=== PATIENT | female | born 1960 | race Caucasian/White ===

== ENCOUNTER → 2018-09-19 | Outpatient (CLI) | payer OTHER ==
[~2018-09-19] MED LIST: ACET325 PO; ALBU90OI INH; ALPR1 PO; ATEN25 PO; AZIT250 PO; BENADRYL25 MG PO; BENZ100A PO; CEPH500 PO; CLIN300 PO; CLON.5 PO; CRUTCH3 USE; CRUTCH4 XX; CYCL10 PO; Calcium Carbon500 M1 PO; Colace100 MG PO; DIPH50 PO; DOXY100 PO; EPIPEN 2-P0.3 MG/0.3 IM; FAMO20 PO; HYDACE10B PO; HYDACE5 PO; HYDACE5325 PO; IBUP600; IBUP800 PO; METPRE4DP PO; NAPR220 PO; NAPR500 PO; NICOTINE1 EAC1 TD; PENVK500 PO; PRED10 PO; PRED20 PO; PROM25 PO; Prednisone20 MG PO; RXALBOI INH; RXCYCL10 PO; RXHYDACE PO; RXPENVK250 PO; RXTRAM50 PO; SULTRIDS PO; TRAM50 PO; TRAZ50 PO; VARE1 PO; [UNRECOGNIZED DRUG - CODE] PO
== END | disposition home or self-care (01) ==
LOC: EDSTATUS 08:05 → LAB 20:45 → LAB SHORT 20:45
DX: J02.9 Acute pharyngitis, unspecified (principal)
CPT/HCPCS: 87081

== ENCOUNTER 2020-04-07 07:32 | Day surgery (SDC) | payer OTHER ==
[~2020-04-07] VITALS: Ht 167.6 cm; Wt 105.4 kg
== END 2020-04-07 09:52 | disposition home or self-care (01) ==
LOC: ORSCSDS 07:32
PROVIDERS: Internal Medicine Gastroenterology
PROC: 0DBM8ZX Excision of Descending Colon, Via Natural or Artificial Opening Endoscopic, Diagnostic (ICD-10-PCS; principal; 2020-04-07 09:00)
DX: Z12.11 Encounter for screening for malignant neoplasm of colon (principal); Z86.010 Personal history of colon polyps; Z80.0 Family history of malignant neoplasm of digestive organs; D12.4 Benign neoplasm of descending colon; K57.30 Diverticulosis of large intestine without perforation or abscess without bleeding; K64.1 Second degree hemorrhoids; F17.210 Nicotine dependence, cigarettes, uncomplicated; Z79.899 Other long term (current) drug therapy
CPT/HCPCS: 88305; J0330; J0461; J2405; J2704; J7120

== ENCOUNTER → 2022-12-10 | Outpatient (CLI) | payer OTHER | LOC: LAB 10:02 → LAB SHORT 10:02 | DX: B37.2 Candidiasis of skin and nail (principal) | CPT/HCPCS: 83036 ==

== ENCOUNTER 2023-01-04 21:41 | Emergency (ER) | payer OTHER ==
[~2023-01-04] VITALS: Ht 167.6 cm; Wt 81.7 kg
[2023-01-04 23:08] VITALS: BP 160/97
== END 2023-01-04 23:29 | disposition home or self-care (01) ==
LOC: ER 21:41
DX: T40.411A Poisoning by fentanyl or fentanyl analogs, accidental (unintentional), initial encounter (principal); R11.0 Nausea; F17.200 Nicotine dependence, unspecified, uncomplicated; Z88.8 Allergy status to other drugs, medicaments and biological substances; X58.XXXA Exposure to other specified factors, initial encounter
CPT/HCPCS: 99283; A9270

== ENCOUNTER 2023-03-11 20:09 | Emergency (ER) | payer OTHER ==
[~2023-03-11] VITALS: Ht 167.6 cm; Wt 97.5 kg
[2023-03-11 20:46] LABS: BASOPHILS ABSOLUTE AUTO 0.06 K/mm3 (0.00-0.23); BASOPHILS PERCENT AUTO 1 % (0-2); EOSINOPHILS ABSOLUTE AUTO 0.27 K/mm3 (0.00-0.68); EOSINOPHILS PERCENT AUTO 3 % (0-6); Hematocrit 50.1 % (33.0-51.0); Hemoglobin 16.5 g/dL (11.5-16.0); IMMATURE GRAN ABSOLUTE AUTO 0.05 K/mm3 (0.00-0.10); IMMATURE GRAN PERCENT AUTO 1 % (0-1); LYMPHOCYTES ABSOLUTE AUTO 3.15 K/mm3 (0.84-5.20); LYMPHOCYTES PERCENT AUTO 32 % (21-46); MONOCYTES ABSOLUTE AUTO 0.71 K/mm3 (0.16-1.47); MONOCYTES PERCENT AUTO 7 % (4-13); Mean Corpuscular HGB 30.8 pg (26.0-34.0); Mean Corpuscular HGB Conc 32.9 g/dL (31.5-36.5); Mean Corpuscular Volume 94 fL (80-100); Mean Platelet Volume 9.3 fL (9.1-12.4); NEUTROPHILS PERCENT AUTO 57 % (41-73); Platelet Count 296 K/mm3 (150-400); RDW Coefficient Variation 12.9 % (11.7-14.2); RDW Standard Deviation 43.8 fL (35.1-46.3); Red Blood Cell Count 5.36 M/mm3 (3.80-5.20); White Blood Cell Count 9.94 K/mm3 (4.00-11.30)
[2023-03-11 21:05] LABS: Albumin/Globulin Ratio 1.1 (0.8-1.8); Bilirubin, Total 0.3 mg/dL (0.1-1.0); Bun/Creatinine Ratio 34.1 (12.0-20.0); Creatinine, Blood 0.7 mg/dL (0.40-1.00); Globulin, Blood 3.8 g/dL (2.2-4.0); Potassium, Blood 3.8 mmol/L (3.5-5.5); Total Protein, Blood 7.8 g/dL (6.4-8.2)
[2023-03-11] MEDS ORDERED: EPIPEN0.3 MG/0.1 IJ (21:46)
[2023-03-11 21:55] VITALS: BP 101/68
== END 2023-03-11 22:00 | disposition home or self-care (01) ==
LOC: ER 20:09
PROVIDERS: Emergency Medicine
DX: T78.2XXA Anaphylactic shock, unspecified, initial encounter (principal); Z88.8 Allergy status to other drugs, medicaments and biological substances
CPT/HCPCS: 80053; 85025; 96372; 96374; 96375; 99284-25; A9270; J0171; J1100; J1200

== ENCOUNTER → 2023-08-16 | Outpatient (CLI) | payer SELFPAY ==
[~2023-08-16] MED LIST changes: +EPIPEN0.3 MG/0.1 IJ; +IBUP600 PO; +NITR100CA PO
== END | disposition home or self-care (01) ==
LOC: LAB SHORT 17:23
DX: R82.90 Unspecified abnormal findings in urine (principal)
CPT/HCPCS: 87077; 87086; 87186

== ENCOUNTER → 2023-08-17 | Outpatient (CLI) | payer SELFPAY ==
[2023-08-17 17:40] LABS: BASOPHILS ABSOLUTE AUTO 0.03 K/mm3 (0.00-0.23); BASOPHILS PERCENT AUTO 0 % (0-2); EOSINOPHILS PERCENT AUTO 1 % (0-6); Hematocrit 41.8 % (33.0-51.0); Hemoglobin 14.1 g/dL (11.5-16.0); IMMATURE GRAN ABSOLUTE AUTO 0.09 K/mm3 (0.00-0.10); IMMATURE GRAN PERCENT AUTO 1 % (0-1); LYMPHOCYTES ABSOLUTE AUTO 1.38 K/mm3 (0.84-5.20); LYMPHOCYTES PERCENT AUTO 9 % (21-46); MONOCYTES PERCENT AUTO 11 % (4-13); Mean Corpuscular HGB 30.6 pg (26.0-34.0); Mean Corpuscular HGB Conc 33.7 g/dL (31.5-36.5); Mean Corpuscular Volume 91 fL (80-100); Mean Platelet Volume 9.6 fL (9.1-12.4); NEUTROPHILS ABSOLUTE AUTO 11.85 K/mm3 (1.96-9.15); NEUTROPHILS PERCENT AUTO 78 % (41-73); Platelet Count 203 K/mm3 (150-400); RDW Standard Deviation 43.8 fL (35.1-46.3); Red Blood Cell Count 4.61 M/mm3 (3.80-5.20); White Blood Cell Count 15.15 K/mm3 (4.00-11.30)
== END | disposition home or self-care (01) ==
LOC: LAB SHORT 17:00
PROVIDERS: Nurse Practitioner Family
DX: N39.0 Urinary tract infection, site not specified (principal)
CPT/HCPCS: 85025

== ENCOUNTER → 2024-06-28 | Outpatient (CLI) | payer MEDICARE ==
[2024-06-28 18:54] LABS: BASOPHILS ABSOLUTE AUTO 0.07 K/mm3 (0.00-0.23); BASOPHILS PERCENT AUTO 1 % (0-2); EOSINOPHILS ABSOLUTE AUTO 0.21 K/mm3 (0.00-0.68); EOSINOPHILS PERCENT AUTO 2 % (0-6); Hematocrit 43.6 % (33.0-51.0); Hemoglobin 13.9 g/dL (11.5-16.0); IMMATURE GRAN ABSOLUTE AUTO 0.07 K/mm3 (0.00-0.10); IMMATURE GRAN PERCENT AUTO 1 % (0-1); LYMPHOCYTES ABSOLUTE AUTO 2.65 K/mm3 (0.84-5.20); LYMPHOCYTES PERCENT AUTO 20 % (21-46); MONOCYTES ABSOLUTE AUTO 1.33 K/mm3 (0.16-1.47); MONOCYTES PERCENT AUTO 10 % (4-13); Mean Corpuscular HGB Conc 31.9 g/dL (31.5-36.5); Mean Corpuscular Volume 97 fL (80-100); Mean Platelet Volume 9.4 fL (9.1-12.4); NEUTROPHILS ABSOLUTE AUTO 8.64 K/mm3 (1.96-9.15); NEUTROPHILS PERCENT AUTO 67 % (41-73); Platelet Count 364 K/mm3 (150-400); RDW Coefficient Variation 12.2 % (11.7-14.2); RDW Standard Deviation 43.9 fL (35.1-46.3); Red Blood Cell Count 4.48 M/mm3 (3.80-5.20); White Blood Cell Count 12.97 K/mm3 (4.00-11.30)
[2024-06-28 19:05] LABS: Albumin, Blood 3.1 g/dL (3.4-5.0); Albumin/Globulin Ratio 0.7 (0.8-1.8); Bilirubin, Total 0.3 mg/dL (0.1-1.0); Bun/Creatinine Ratio 20.6 (12.0-20.0); Calcium, Blood 9.6 mg/dL (8.5-10.1); Creatinine, Blood 0.53 mg/dL (0.40-1.00); Globulin, Blood 4.7 g/dL (2.2-4.0); Potassium, Blood 4.8 mmol/L (3.5-5.5); Total Protein, Blood 7.8 g/dL (6.4-8.2)
== END | disposition home or self-care (01) ==
LOC: LAB SHORT 12:40 → LAB 12:40
PROVIDERS: Nurse Practitioner Family
DX: R22.2 Localized swelling, mass and lump, trunk (principal)
CPT/HCPCS: 80053; 85025

== ENCOUNTER 2025-02-03 06:21 | Inpatient (IN) | payer MEDICARE ==
[~2025-02-03] VITALS: Ht 177.8 cm; Wt 107.2 kg
[2025-02-03 07:04] LABS: BASOPHILS ABSOLUTE AUTO 0.07 K/mm3 (0.00-0.23); BASOPHILS PERCENT AUTO 0 % (0-2); EOSINOPHILS ABSOLUTE AUTO 0.03 K/mm3 (0.00-0.68); EOSINOPHILS PERCENT AUTO 0 % (0-6); Hematocrit 42.3 % (33.0-51.0); Hemoglobin 14.2 g/dL (11.5-16.0); IMMATURE GRAN ABSOLUTE AUTO 0.21 K/mm3 (0.00-0.10); IMMATURE GRAN PERCENT AUTO 1 % (0-1); LYMPHOCYTES ABSOLUTE AUTO 0.52 K/mm3 (0.84-5.20); LYMPHOCYTES PERCENT AUTO 3 % (21-46); MONOCYTES ABSOLUTE AUTO 1.11 K/mm3 (0.16-1.47); MONOCYTES PERCENT AUTO 7 % (4-13); Mean Corpuscular HGB Conc 33.6 g/dL (31.5-36.5); Mean Corpuscular Volume 94 fL (80-100); NEUTROPHILS ABSOLUTE AUTO 14.53 K/mm3 (1.96-9.15); NEUTROPHILS PERCENT AUTO 88 % (41-73); NRBC ABSOLUTE 0.00 K/mm3 (0.00-0.02); NRBC Auto 0.0 /100 WBC (0.0-0.2); Platelet Count 175 K/mm3 (150-400); RDW Coefficient Variation 12.7 % (11.7-14.2); RDW Standard Deviation 44.2 fL (35.1-46.3)
[2025-02-03 07:16] LABS: Alanine Aminotransfer (ALT/SGP 28.0 U/L (12-78); Albumin, Blood 3.1 g/dL (3.4-5.0); Albumin/Globulin Ratio 0.7 (0.8-1.8); Anion Gap 8.0 mmol/L (3-11); Aspartate Aminotrans (AST/SGOT 23.0 U/L (12-37); Bilirubin, Total 0.4 mg/dL (0.1-1.0); Blood Urea Nitrogen 27.0 mg/dL (8-24); CO2, Blood 22.0 mmol/L (21-32); Calcium, Blood 9.6 mg/dL (8.5-10.1); Chloride, Blood 109.0 mmol/L (98-108); Creatinine, Blood 1.1 mg/dL (0.40-1.00); Globulin, Blood 4.2 g/dL (2.2-4.0); Glucose, Blood 134.0 mg/dL (70-99); Potassium, Blood 4.2 mmol/L (3.5-5.5); Sodium, Blood 135.0 mmol/L (136-145); Total Protein, Blood 7.3 g/dL (6.4-8.2)
[2025-02-03 07:19] LABS: Source, Urine Clean Catch
[2025-02-03 07:28] LABS: Bilirubin, Urine Neg (Neg); Color, Urine Yellow (P-Yellow); Glucose Qualitative, Urine Neg (Neg); Ketones, Urine Neg (Neg); Leukocyte Esterase, Urine 3+ (Neg); Protein, Urine 3+ (Neg); Specific Gravity, Urine 1.015 (1.003-1.022); Urobilinogen, Urine NORM (Normal)
[2025-02-03 07:43] LABS: Influenza A, PCR NEGATIVE (NEGATIVE); Influenza B, PCR NEGATIVE (NEGATIVE); Resp Syncytial Virus, PCR NEGATIVE (NEGATIVE); SARS-Cov-2 (COVID-19) PCR, MMC NEGATIVE (NEGATIVE)
[2025-02-03] MEDS ORDERED: NS 1,000 ML IV SCH (07:50)
[2025-02-03] MEDS ORDERED: CefTRIAXone Sodium 1,000 MG in NS 100 ML IV ONE (07:50)
[2025-02-03 11:22] VITALS: BP 115/66
[2025-02-03 15:48] VITALS: BP 112/56
--- NOTE | 2025-02-03 15:50 | NUR ---
NOTE TEMPORAL TEMP 99.9. ORAL RECORDED 102.4. NOTIFIED DR. MADRID, DR. MADRID ORDERED TYLENOL.
[2025-02-03] MEDS ORDERED: FLU VACC TS2025(65UP)/MF59C/PF 45 MCG/0.5 ML SYRINGE IM SCH (16:00)
--- NOTE | 2025-02-03 18:14 | NUR ---
NOTE PT GOT TYLENOL AT 1557. PT TEMP AT 1702 WAS 102.9. THIS RN APPLIED ICE PACKS, GAVE PT POPCICLE, FAN SET UP TO COOL PT. PT CHANGED INTO JUST A GOWN. TOOK PT ORAL TEMP AT 1810 IT WAS 99.6, 99.9, AND 100.8. PT REPORTS TAKING 4 TYLENOL AND 2 IBUPHROPHEN AT HOME. PT EDUCATED ABOUT HOME NSAID USE. REPORTED TO DR. MADRID. DR. MADRID ORDERED ONE TIME TYLENOL.
--- NOTE | 2025-02-03 19:24 | NUR ---
SHIFT SUMMARY PT A&OX4. PT ADMITTED DUE TO SEPSIS. ADMIT ASSESSMENT COMPLETE. PT REPORTS TAKES NO MEDS AT HOME. PT REPORTS NO CHEST PAIN/SOB/GEN PAIN. VSS. PT HAD FEVER THROUGH SHIFT. PT HAS ICE PACKS IN PLACE AND FAN ON. TYLENOL ORDERED Q6 HOURS. PT ON TELE, NO TELE REPORTS. PT REPORTS NO NAUSEA. LR INFUSING AT 100ML/HR. SECOND RN SKIN CHECK COMPLETED WITH EVGENY COLEMAN. PT ORIENTED TO FALL PRECAUTIONS/UNIT/CALL LIGHT. PT IN BED, BED IN LOWEST POSITION, CALL LIGHT IN REACH.
[2025-02-03 19:34] VITALS: BP 110/69
[2025-02-03] MEDS ORDERED: Lactobacil 2-S.Thermo-Bifido 1 1 Cap PO SCH (21:00)
[2025-02-03 23:22] VITALS: BP 136/50
[2025-02-04] VITALS (10 sets, daily range): BP systolic 90–143; BP diastolic 52–101
--- NOTE | 2025-02-04 00:23 | NUR ---
RECEIVED TYLENOL 650 MG EARLIER FOR TEMP 101.6 ORAL, TEMP NOW 102.8. MD NOTIFIED. ASSA ORDERED AND ICE PACKS APPLIED TO BRING DOWN FEVER. A/O X 4. CALL LIGHT IN REACH. PT LAYING DOWN. WILL MONITOR
[2025-02-04] MEDS ORDERED: Ketorolac Tromethamine 15mg Vial IV ONE (02:10)
--- NOTE | 2025-02-04 02:22 | NUR ---
TEMP 99.5 (DOWN FROM 101.6. BP 99/56. LEGS ELEVATED. ASYMPTOMATIC. WILL RE CHECK VS FOR FOLLOW UP
--- NOTE | 2025-02-04 03:38 | NUR ---
SHIFT SUMMARY PATIENT HAS BEEN A&OX4, HAS BEEN COOPERATIVE WITH CARE AND HAS BEEN PLESANT. PATIENT HAS HAD SEVERAL TEMPERATURE T/O THE NIGHT AND ONE VEW SCORE OF 4, DOCTOR NOTIFIED T/O, MEDICATED PER EMAR, ICED WITH SEVERAL ICE BAGS, TORADOL HELD DUE TO BLOOD THINNER AND LOW BP, WILL CONTIUE TO MONITOR. PRESENTLY ASYMPTOMATIC, RESTING WITHOUT SIGNS OF DISTRESS. PATIENT IS A STBA X1, ABLE TO MOVE, BUT CAN USE THE WALKER A "BAD SUPPORT," EDUCATED ON PROPER USE OF WALKER WHEN SITTING. CALL LIGHT WITHIN REACH, BEDRAILS UP X2, AND BED LOW POSITION FOR SAFETY.
[2025-02-04 05:28] LABS: BASOPHILS ABSOLUTE AUTO 0.03 K/mm3 (0.00-0.23); BASOPHILS PERCENT AUTO 0 % (0-2); EOSINOPHILS ABSOLUTE AUTO 0.02 K/mm3 (0.00-0.68); EOSINOPHILS PERCENT AUTO 0 % (0-6); Hematocrit 37.5 % (33.0-51.0); Hemoglobin 12.4 g/dL (11.5-16.0); IMMATURE GRAN ABSOLUTE AUTO 0.08 K/mm3 (0.00-0.10); IMMATURE GRAN PERCENT AUTO 1 % (0-1); LYMPHOCYTES ABSOLUTE AUTO 1.19 K/mm3 (0.84-5.20); LYMPHOCYTES PERCENT AUTO 12 % (21-46); MONOCYTES ABSOLUTE AUTO 0.96 K/mm3 (0.16-1.47); MONOCYTES PERCENT AUTO 9 % (4-13); Mean Corpuscular HGB Conc 33.1 g/dL (31.5-36.5); Mean Corpuscular Volume 96 fL (80-100); NEUTROPHILS ABSOLUTE AUTO 8.02 K/mm3 (1.96-9.15); NEUTROPHILS PERCENT AUTO 78 % (41-73); NRBC ABSOLUTE 0.00 K/mm3 (0.00-0.02); NRBC Auto 0.0 /100 WBC (0.0-0.2); Platelet Count 150 K/mm3 (150-400); RDW Coefficient Variation 13.0 % (11.7-14.2); RDW Standard Deviation 46.0 fL (35.1-46.3)
[2025-02-04 05:48] LABS: Anion Gap 6.0 mmol/L (3-11); Blood Urea Nitrogen 17.0 mg/dL (8-24); CO2, Blood 25.0 mmol/L (21-32); Calcium, Blood 9.0 mg/dL (8.5-10.1); Chloride, Blood 111.0 mmol/L (98-108); Creatinine, Blood 0.9 mg/dL (0.40-1.00); Glucose, Blood 107.0 mg/dL (70-99); Potassium, Blood 3.9 mmol/L (3.5-5.5); Sodium, Blood 138.0 mmol/L (136-145)
--- NOTE | 2025-02-04 07:48 | NUR ---
ASSUMED CARE OF PT- REPORT FROM NIGHT RN COMPLETED AT THE BEDSIDE. PT HAD FEVERS LAST NIGHT UP TO 102.8. ORAL AND TEMPORAL TEMP CHECKED AT THE TIME OF REPORT. TEMPORAL 98.6 ORAL 98.5. ON AM VITALS AT 0740 TEMP 99.2. PT WAS NOTABLY SOB. RESP RATE ELEVATED 28-30. LUNG SOUNDS COARSE IN ALL LOBES. POSSIBLY AUDIBULE HEART MURMUR, BUT D/T COARSE LUNGS DIFFICULT TO BE SURE. WILL CALL DR TO SPEAK ABOUT THE PT RESP STATUS.
[2025-02-04] MEDS ORDERED: NS 1,000 ML IV SCH (08:00)
--- NOTE | 2025-02-04 08:21 | NUR ---
PT WAS PROVIDED WITH HER MEAL TRAY, BUT WAS UNABLE TO EAT D/T RESPIRATORY STATUS. MEAL TRAY WAS REMOVED TO PREVENT ASPIRATION. PT MADE A PHONE CALL TO HER FAMILY AND IS NOTABLY SOB WITH HER CONVERSATION. PLACED ON O2 TO RELIEVE THE SOB, WITH LITTLE EFFECT.
--- NOTE | 2025-02-04 08:32 | NUR ---
TRANSFER NOTE- PT TO TRANSFER TO PCU 13. CALLED AND PROVIDED VERBAL REPORT. NO FURTHER QUESTIONS AT THIS TIME. PT TO TRANSFER TO PCU IN THE BED WITH THIS RN AND RN CLINICAL.
[2025-02-04] MEDS ORDERED: CefTRIAXone Sodium 2,000 MG in NS 100 ML IV SCH (09:00)
[2025-02-04] MEDS ORDERED: CefTRIAXone Sodium 1,000 MG in NS 100 ML IV SCH (09:00)
[2025-02-04] MEDS ORDERED: Enoxaparin 40 MG/0.4 ML SYR SC SCH (09:00)
--- NOTE | 2025-02-04 09:56 | NUR ---
PT ARRIVED TO UNIT FROM RM 332 @ 0848 VIA BED. SHE IS A&Ox4 AND ABLE TO MAKE NEEDS KNOWN. SHE IS ON 2LNC W/O2 SATS > 92%. SHE IS A SBA FOR AMBULATION. NS RUNNING PER EMAR. SHE DID HAVE A TEMP OF 101.7 UPON ARRIVAL TO UNIT, MEDICATED W/APAP PER EMAR AND REMOVED BLANKETS. NO OTHER NEEDS OR CONCERNS NOTED @ THIS TIME. BED IN LOW POSITION, CALL LIGHT AND PERSONAL BELONGINGS IN REACH.
[2025-02-05 03:27] VITALS: BP 139/76
[2025-02-05 03:38] LABS: BASOPHILS ABSOLUTE AUTO 0.03 K/mm3 (0.00-0.23); BASOPHILS PERCENT AUTO 0 % (0-2); EOSINOPHILS ABSOLUTE AUTO 0.04 K/mm3 (0.00-0.68); EOSINOPHILS PERCENT AUTO 1 % (0-6); Hematocrit 35.1 % (33.0-51.0); Hemoglobin 11.5 g/dL (11.5-16.0); IMMATURE GRAN ABSOLUTE AUTO 0.03 K/mm3 (0.00-0.10); IMMATURE GRAN PERCENT AUTO 0 % (0-1); LYMPHOCYTES ABSOLUTE AUTO 1.05 K/mm3 (0.84-5.20); LYMPHOCYTES PERCENT AUTO 13 % (21-46); MONOCYTES ABSOLUTE AUTO 1.16 K/mm3 (0.16-1.47); MONOCYTES PERCENT AUTO 14 % (4-13); Mean Corpuscular HGB Conc 32.8 g/dL (31.5-36.5); Mean Corpuscular Volume 96 fL (80-100); NEUTROPHILS ABSOLUTE AUTO 5.73 K/mm3 (1.96-9.15); NEUTROPHILS PERCENT AUTO 71 % (41-73); NRBC ABSOLUTE 0.00 K/mm3 (0.00-0.02); NRBC Auto 0.0 /100 WBC (0.0-0.2); Platelet Count 150 K/mm3 (150-400); RDW Coefficient Variation 12.8 % (11.7-14.2); RDW Standard Deviation 45.7 fL (35.1-46.3)
[2025-02-05 04:01] LABS: Anion Gap 7.0 mmol/L (3-11); Blood Urea Nitrogen 14.0 mg/dL (8-24); CO2, Blood 24.0 mmol/L (21-32); Calcium, Blood 8.4 mg/dL (8.5-10.1); Chloride, Blood 112.0 mmol/L (98-108); Creatinine, Blood 0.71 mg/dL (0.40-1.00); Glucose, Blood 101.0 mg/dL (70-99); Potassium, Blood 4.0 mmol/L (3.5-5.5); Sodium, Blood 139.0 mmol/L (136-145)
--- NOTE | 2025-02-05 06:21 | NUR ---
SHIFT SUMMARY. PATIENT A/OX4. NO SIGNIFICANT EVENTS OVERNIGHT. LS CTA. REQUIRED O2 WHILE ASLEEP 2L/MIN NC. 02 SATS WOULD DECREASE TO 85-86% ON ROOM AIR WHILE SLEEPING. PATIENT UP MULTIPLE TIMES AND AMBLATED TO RR WITH SBA TO VOID. GOOD URINE OUTPUT. MINIMAL EXERTION WOULD INCREASE RESPIRATORY RATE TO MID 20'S WITHOUT DISTRESS. PATIENT DISCUSSED DESIRE TO REMAIN ABSTINENT FROM SMOKING AFTER DISCHARGE. TEMPS <100.0 F. ABLE TO USE CALL LIGHT AND MAKE NEEDS KNOWN. BED IN LOWEST POSITION. PLAN OF CARE ONGOING.
[2025-02-05 07:38] VITALS: BP 147/80
--- NOTE | 2025-02-05 09:34 | NUR ---
ASSUMPTION OF CARE BEDSIDE REPORT COMPLETED WITH NIGHT RN. PT HAD ELEVATED TEMPS LAST NIGHT, MAX OF 99.5. PT A/O X4, SITTING IN RECLINER. ON AM VITALS AT 0738 TEMPORAL TEMP OF 101.2, DENIES BODY ACHES OR CHILLS. REMOVED BLANKET AND LOWERED TEMP IN ROOM. SATS MAINTAINED >95% ON ROOM AIR, RR 18-20. PT RR 20-24 WHILE EATING AND ON EXERTION, SATS MAINTAINED >95%. LUNG SOUNDS CLEAR THROUGHOUT. SR 70-90s, DENIES CHEST PAIN/PRESSURE. CALL LIGHT WITHIN REACH.
--- NOTE | 2025-02-05 09:50 | NUR ---
UPDATE TEMPORAL TEMPERATURE 98.7 AFTER REMOVING BLANKETS AND LOWERING TEMPERATURE IN ROOM. PT REQUESTED NURSE SBA TO WALK. PT AMBULATED APPROXIMATELY 400 FEET WITHOUT DIFFICULTY, TOLERATED WELL.
[2025-02-05 12:05] VITALS: BP 135/69
--- NOTE | 2025-02-05 13:37 | NUR ---
UPDATE PT CONTINUES TO WALK 200-400 FEET WITHOUT DIFFICULTY. REMAINS TACHYPNEIC WITH EXERTION, SATS MAINTAINED >95% ON ROOM AIR. TEMPERATURE HAS NOT EXCEEDED 98.7 SINCE THIS MORNING. BED LOCKED IN LOWEST POSITION, CALL LIGHT WITHIN REACH.
[2025-02-05 15:21] VITALS: BP 156/80
[2025-02-05] MEDS ORDERED: CefTRIAXone Sodium 2,000 MG in NS 100 ML IV SCH (16:00)
--- NOTE | 2025-02-05 17:58 | NUR ---
SHIFT SUMMARY PT A/O X 4, UES CALL LIGHT APPROPRIATELY AND IS COOPERATIVE WITH CARE. PATIENT IN SR 80s. SBP 130-150s, DENIES CHEST PAIN/PRESSURE. SATS MAINTAINED > 90% ON ROOM AIR, TACHYPNEA THAT WORSENS WITH EXERTION AND EATING BUT DENIES FEELING SOB. PT AMBULATED DOWN HUERTAS MULTIPLE TIMES TODAY WITH NURSE SBA, TOLERATED WELL. TEMP ELEVATED THIS AM BUT IMPROVED AFTER LOWERING TEMP IN ROOM, SEE PREVIOUS NURSE NOTES. NO ACUTE CHANGES. BED LOCKED IN LOWEST SETTING, CALL LIGHT IN REACH.
[2025-02-05 20:28] VITALS: BP 138/66
[2025-02-06 03:34] VITALS: BP 131/71
[2025-02-06 04:21] LABS: BASOPHILS ABSOLUTE AUTO 0.04 K/mm3 (0.00-0.23); BASOPHILS PERCENT AUTO 1 % (0-2); EOSINOPHILS ABSOLUTE AUTO 0.09 K/mm3 (0.00-0.68); EOSINOPHILS PERCENT AUTO 1 % (0-6); Hematocrit 35.4 % (33.0-51.0); Hemoglobin 11.8 g/dL (11.5-16.0); IMMATURE GRAN ABSOLUTE AUTO 0.07 K/mm3 (0.00-0.10); IMMATURE GRAN PERCENT AUTO 1 % (0-1); LYMPHOCYTES ABSOLUTE AUTO 1.58 K/mm3 (0.84-5.20); LYMPHOCYTES PERCENT AUTO 18 % (21-46); MONOCYTES ABSOLUTE AUTO 1.30 K/mm3 (0.16-1.47); MONOCYTES PERCENT AUTO 15 % (4-13); Mean Corpuscular HGB Conc 33.3 g/dL (31.5-36.5); Mean Corpuscular Volume 93 fL (80-100); NEUTROPHILS ABSOLUTE AUTO 5.56 K/mm3 (1.96-9.15); NEUTROPHILS PERCENT AUTO 64 % (41-73); NRBC ABSOLUTE 0.00 K/mm3 (0.00-0.02); NRBC Auto 0.0 /100 WBC (0.0-0.2); Platelet Count 175 K/mm3 (150-400); RDW Coefficient Variation 12.6 % (11.7-14.2); RDW Standard Deviation 43.5 fL (35.1-46.3)
[2025-02-06 04:43] LABS: Anion Gap 7.0 mmol/L (3-11); Blood Urea Nitrogen 16.0 mg/dL (8-24); CO2, Blood 25.0 mmol/L (21-32); Calcium, Blood 8.8 mg/dL (8.5-10.1); Chloride, Blood 110.0 mmol/L (98-108); Creatinine, Blood 0.6 mg/dL (0.40-1.00); Glucose, Blood 93.0 mg/dL (70-99); Potassium, Blood 4.1 mmol/L (3.5-5.5); Sodium, Blood 138.0 mmol/L (136-145)
[2025-02-06 05:09] VITALS: BP 141/86
--- NOTE | 2025-02-06 05:10 | NUR ---
SHIFT SUMMARY/TRANSFER TO [facility] PT A&Ox4, CALLS AND COMMUNICATES NEEDS APPROPRIATELY. BP STABLE, HR 80's, NO TELE, DENIES CP/PRESSURE. SpO2> 92% RA, DENIES SOB. IND IN ROOM. NO C/O PAIN. PT RESTED WELL THROUGHOUT NIGHT AND STATES THAT SHE IS READY TO GO HOME TODAY. NO OTHER EVENTS, REPORT GIVEN TO MEDICAL FLOOR RN. PT TRANSFERED VIA WHEELCHAIR BY CLINICAL STAFF MEMBER WITH ALL PT BELONGINGS AT APPROXIMATELY 0500.
[2025-02-06 07:48] VITALS: BP 129/72
[2025-02-06] MEDS ORDERED: CefTRIAXone Sodium 2,000 MG in NS 100 ML IV SCH (12:00)
[2025-02-06] MEDS ORDERED: VISBIOME 112.51 EACH PO (12:39)
[2025-02-06] MEDS ORDERED: Acetaminophen650 M1 PO (12:39)
[2025-02-06] MEDS ORDERED: AMOCLA875 PO (12:39)
--- NOTE | 2025-02-06 14:15 | NUR ---
PT DISCHARGED TO HOME. DISCHARGE INSTRUCTIONS PROVIDED AND EDUCATED ON AT TIME OF DISCHARGE. ALL VALUABLES RETURNED AND SENT HOME WITH THE PT. MEDICATIONS FAXED TO [facility].
== END 2025-02-06 14:44 | disposition home or self-care (01) | DRG 872 ==
LOC: ER 06:21 → PCU 06:22 → SURS 06:22 → MEDS 11:10 → PCU 02-04 08:43 → MEDS 02-06 05:06 → ENPENDDIS 02-06 12:49 → MEDS 02-06 14:44
PROVIDERS: Emergency Medicine; Student in an Organized Health Care Education/Training Program; ADMIT Internal Medicine
DX: A41.51 Sepsis due to Escherichia coli [E. coli] (principal); N17.9 Acute kidney failure, unspecified; N12 Tubulo-interstitial nephritis, not specified as acute or chronic; R65.20 Severe sepsis without septic shock; I35.0 Nonrheumatic aortic (valve) stenosis; Z88.8 Allergy status to other drugs, medicaments and biological substances; Z87.891 Personal history of nicotine dependence
CPT/HCPCS: 36415; 71046; 80048; 80053; 81001; 83605; 85025; 87040; 87077; 87086; 87186; 87335; 87637; 93306; 94760; 96365; 96372; 96375; 96376; 99284-25; A9270; G0378; J0696; J1650; J2185; J7030; J7120

== ENCOUNTER → 2025-02-24 | Outpatient (CLI) | payer OTHER ==
[~2025-02-24] MED LIST changes: +AMOCLA875 PO; +Acetaminophen650 M1 PO; +VISBIOME 112.51 EACH PO
[2025-02-24 17:52] LABS: Source, Urine Voided
[2025-02-24 19:11] LABS: Bilirubin, Urine Neg (Neg); Glucose Qualitative, Urine Neg (Neg); Ketones, Urine Neg (Neg); Leukocyte Esterase, Urine Neg (Neg); Protein, Urine Neg (Neg); Specific Gravity, Urine 1.010 (1.003-1.022); Urobilinogen, Urine NORM (Normal)
[2025-02-24 19:33] LABS: Color, Urine Pale Yellow (P-Yellow)
== END ==
LOC: LAB 17:51 → LAB SHORT 17:51
DX: N30.90 Cystitis, unspecified without hematuria (principal)
CPT/HCPCS: 81003